=== PATIENT | male | born 1965 | race American Indian/Alaskan Native ===

== ENCOUNTER 2018-05-09 12:48 | Emergency (ER) | payer BC ==
[2018-05-09 12:49] VITALS: BMI 26.4
[2018-05-09 13:16] VITALS: RESP 18; TEMP 97.8
--- NOTE | 2018-05-09 14:16 | ED PDOC ---
Arrival/HPI - General Chief Complaint: Headache Time Seen by Provider: 05/09/18 13:24 Historian: Patient - History of Present Illness Narrative History of Present Illness (Text): 05/09/18 14:21 A 52 year old male, whose past medical history includes hypertension, presents to the emergency department complaining of right-side headache for the past 4-5 days. Patient reports BARTON came on gradually, not worse of life, no thunderclap sensation. States headache may be caused by the fact that he has not taken his blood pressure medication for a few days. Today, headache felt different than usual, which he is unable to describe how so. Also, started experiencing dizziness and blurry vision (last for 2 minutes), and chest pain (brief, occurred last night after walking up flight of stairs); also vomited a few times while [place]. Mentions having chest pain in the past and when he had been evaluated, all tests were normal. Patient denies any fever, chills, nausea, chest pain, abdominal pain, cough, shortness of breath, neck pain/stiffness, or any other complaints at this time. Denies any recent travel. PMD: Dr. Darlene Fine Past Medical History - Provider Review Nursing Documentation Reviewed: Yes - Infectious Disease Hx of Infectious Diseases: None - Tetanus Immunization Tetanus Immunization: Unknown - Cardiac Hx Cardiac Disorders: Yes Hx Hypertension: Yes - Pulmonary Hx Bronchitis: Yes - Neurological Hx Neurological Disorder: No - HEENT Hx HEENT Disorder: No - Renal Hx Renal Disorder: No - Endocrine/Metabolic Hx Endocrine Disorders: No - Hematological/Oncological Hx Blood Disorders: No - Integumentary Hx Dermatological Disorder: No - Musculoskeletal/Rheumatological Hx Musculoskeletal Disorders: No - Gastrointestinal Hx Gastrointestinal Disorders: No - Genitourinary/Gynecological Hx Genitourinary Disorders: No - Psychiatric Hx Psychophysiologic Disorder: No Hx Substance Use: No - Surgical History Hx Cardiac Catheterization: Yes (negative) - Anesthesia Hx Anesthesia: No - Suicidal Assessment Feels Threatened In Home Enviroment: No Family/Social History - Physician Review Nursing Documentation Reviewed: Yes Family/Social History: No Known Family HX Smoking Status: Never Smoked Hx Alcohol Use: No Hx Substance Use: No Hx Substance Use Treatment: No Allergies/Home Meds Allergies/Adverse Reactions: Allergies No Known Allergies Allergy (Verified 05/09/18 13:16) Home Medications: Home Meds Medication Instructions Recorded Confirmed RX: Aspirin [Aspirin Chewable] 81 mg PO DAILY 05/09/18 05/09/18 RX: Lisinopril [Zestril] 10 mg PO DAILY 05/09/18 05/09/18 Review of Systems - Physician Review All systems were reviewed & negative as marked: Yes - Review of Systems Constitutional: absent: Fevers, Night Sweats Eyes: Vision Changes (blurry vision (lasted 2 minutes)) Respiratory: absent: SOB, Cough Cardiovascular: Chest Pain. absent: Syncope Gastrointestinal: Vomiting (few times, now longer vomiting). absent: Abdominal Pain, Diarrhea, Nausea Musculoskeletal: absent: Neck Pain (and no neck stiffness) Neurological: Headache (not worse in life, no thunderclap), Dizziness Physical Exam - Physical Exam Narrative Physical Exam (Text): Gen: NAD, cooperative, well appearing, non-toxic. Head: NCAT. HEENT: no nystagmus EYES: PERRL, EOMI, conjunctiva clear, MOUTH: moist MM, posterior pharynx without erythema or exudate, uvula midline. CV: (+) S1S2, RRR, no M/G/R LUNGS: CTA B/L, No W/R/R, good air movement Abd: Soft, NTTP, no guarding, rebound or rigidity. Neuro: AAO x 3, GCS 15, CN 2-12 intact, motor and sensory grossly intact, 5/5 muscle strength B/L UE's and LE's. ext: no cyanosis or edema Vital Signs Reviewed: Yes Vital Signs Temp Pulse Resp BP Pulse Ox 05/09/18 13:13 97.8 F 74 18 128/85 99 Temperature: Afebrile Blood Pressure: Normal Pulse: Regular Respiratory Rate: Normal Appearance: Positive for: Well-Appearing, Non-Toxic, Comfortable Pain Distress: None Mental Status: Positive for: Alert and Oriented X 3 Finger Stick Blood Glucose: 82 Medical Decision Making ED Course and Treatment: 05/09/18 14:22 Impression: 52 year old male with right-side headache. Plan: -- EKG -- Head CT -- Chest X-ray -- Labs -- Urinalysis -- Reassess and disposition Progress Notes: EKG: Ordered, reviewed, and independently interpreted the EKG. Rate : 67 BPM Rhythm : NSR Interpretation : No ST-segment elevations or depressions, no T-wave inversions, normal intervals. Comparison : No previous EKG for comparison. 05/09/2018 14:[address] IMPRESSION: No acute intracranial pathology. Dictator: Diomedes Salazar MD 05/09/2018 16:10 Chest X-ray IMPRESSION: No active disease. Dictator: Diomedes Salazar MD - RAD Interpretation Radiology Orders: 05/09/18 13:56 HEAD W/O CONTRAST [CT] Stat CHEST TWO VIEWS (PA/LAT) [RAD] Stat - Scribe Statement The provider has reviewed the documentation as recorded by the Scribe Doron Albarado Provider Scribe Attestation: All medical record entries made by the Scribe were at my direction and personally dictated by me. I have reviewed the chart and agree that the record accurately reflects my personal performance of the history, physical exam, medical decision making, and the department course for this patient. I have also personally directed, reviewed, and agree with the discharge instructions and disposition. Disposition/Present on Arrival - Present on Arrival Any Indicators Present on Arrival: No History of DVT/PE: No History of Uncontrolled Diabetes: No Urinary Catheter: No History of Decub. Ulcer: No History Surgical Site Infection Following: None - Disposition Have Diagnosis and Disposition been Completed?: Yes Diagnosis: Dizziness, Dehydration, Chest pain, Headache Disposition: HOME/ ROUTINE Disposition Time: 16:01 Patient Plan: Discharge Condition: IMPROVED Discharge Instructions (ExitCare): Dehydration, Adult (DC), Headache, Adult (DC), Dizziness, Nonvertigo, (DC), Chest Pain (ED) Additional Instructions: CHRISTOPHER OSEI JR, thank you for letting us take care of you today. Your provider was Nahomy Mcdonald MD and you were treated for HEADACHE. The emergency medical care you received today was directed at your acute symptoms. If you were prescribed any medication, please fill it and take as directed. It may take several days for your symptoms to resolve. Return to the Emergency Department if your symptoms worsen, do not improve, or if you have any other problems. Please contact your doctor in 1-2 days for a follow up appointment. Bring any paperwork you were given at discharge with you along with any medications you are taking to your follow up visit. Our treatment cannot replace ongoing medical care by a primary care provider outside of the emergency department. Thank you for allowing the [facility] team to be part of your care today. If you had an X-Ray or CT scan: A Radiologist will review the ED reading if any change in treatment is needed we will contact you. If you had a blood, urine, or wound culture: It will take several days for the results, if any change in treatment is needed we will contact you. If you had an STI test: It will take 48 hours for the results. Please call after 1 week if you have not heard back. Referrals: Darlnee Fine V, DO [Family Provider] - Follow up with primary Forms: eOriginal (Citizen Of [place])
[2018-05-09 14:32] LABS: BASO # 0.01 K/mm3 (0.0-2.0); BASO % 0.2 % (0.0-3.0); EOS # 0.2 (0.0-0.7); EOS % 3.6 % (1.5-5.0); GRAN # 2.18 (1.4-6.5); LYMPH # 1.6 (1.2-3.4); MEAN CELL VOLUME 85.4 fl (80.0-105.0); MEAN CORPUSCULAR HEMOGLOBIN 26.3 pg (25.0-35.0); MEAN CORPUSCULAR HGB CONC 30.8 g/dl (31.0-37.0); MEAN PLATELET VOLUME 9.8 fl (7.0-11.0); MONO # 0.3 (0.1-0.6); MONO % 7.2 % (1.0-6.0); RBC 5.33 10^6/uL (3.5-6.1); RED CELL DISTRIBUTION WIDTH 14.8 % (11.5-14.5); WHITE BLOOD COUNT 4.2 10^3/uL (4.5-11.0)
[2018-05-09 14:41] LABS: ALB/GLOB RATIO 1.2 (1.1-1.8); ALBUMIN 4.3 g/dL (3.0-4.8); ALT/SGPT 57 U/L (7-56); AST/SGOT 38 U/L (17-59); BLOOD UREA NITROGEN 13 mg/dL (7-21); CALCIUM 9.5 mg/dL (8.4-10.5); GFR NON-AFRICAN AMERICAN > 60
[2018-05-09 14:52] LABS: TROPONIN I < 0.01 ng/mL
--- NOTE | 2018-05-09 14:55 | CT ---
Date of service: 05/09/2018 PROCEDURE: CT HEAD WITHOUT CONTRAST. HISTORY: headache COMPARISON: CT head dated 07/18/2014 TECHNIQUE: Axial computed tomography images were obtained through the head/brain without intravenous contrast. Radiation dose: Total exam DLP = 921.42 mGy-cm. This CT exam was performed using one or more of the following dose reduction techniques: Automated exposure control, adjustment of the mA and/or kV according to patient size, and/or use of iterative reconstruction technique. FINDINGS: HEMORRHAGE: No intracranial hemorrhage. BRAIN: No mass effect or edema. No atrophy or chronic microvascular ischemic changes. VENTRICLES: Unremarkable. No hydrocephalus. CALVARIUM: Unremarkable. PARANASAL SINUSES: Unremarkable as visualized. No significant inflammatory changes. MASTOID AIR CELLS: Unremarkable as visualized. No inflammatory changes. OTHER FINDINGS: None. IMPRESSION: No acute intracranial pathology.
[2018-05-09] MEDS ORDERED: Albuterol-Ipratrop 3 mg / 0.5 (3 ml) UD IH SCH (16:00)
--- NOTE | 2018-05-09 16:14 | RAD ---
Date of service: 05/09/2018 HISTORY: chest pain COMPARISON: Chest radiograph dated 07/27/2014. TECHNIQUE: Chest PA and lateral FINDINGS: LUNGS: No active pulmonary disease. PLEURA: No significant pleural effusion identified. No pneumothorax apparent. CARDIOVASCULAR: No aortic atherosclerotic calcification present. Normal cardiac size. No pulmonary vascular congestion. OSSEOUS STRUCTURES: No significant abnormalities. VISUALIZED UPPER ABDOMEN: Normal. OTHER FINDINGS: None. IMPRESSION: No active disease.
[2018-05-09 17:00] VITALS: BP 117/68; PULSE 66; O2SAT 100
--- NOTE | 2018-05-09 20:13 | CARD ---
APPROVED REPORT Date of service: 05/09/2018 EKG Measurement Heart [id number] <Conclusion> Normal sinus rhythm Normal ECG
== END 2018-05-09 16:58 | disposition home or self-care (01) ==
LOC: ED 12:48
DX: E86.0 Dehydration (principal); R07.9 Chest pain, unspecified; R42 Dizziness and giddiness; R51 Headache; I10 Essential (primary) hypertension